=== PATIENT | female | born 1950 | race Two or more races ===

== ENCOUNTER 2023-12-15 07:36 | Outpatient (CLI) | payer OTHER ==
[~2023-12-15 07:36] MED LIST: COZAAR50 MG; SYNTHROID100 MCG
== END 2023-12-15 07:40 | disposition home or self-care (01) ==
LOC: RX STUDY 07:36
PROVIDERS: ATTEND Internal Medicine Gastroenterology
DX: K57.30 Diverticulosis of large intestine without perforation or abscess without bleeding (principal); K29.70 Gastritis, unspecified, without bleeding; R13.19 Other dysphagia; E78.1 Pure hyperglyceridemia

== ENCOUNTER 2024-09-16 09:32 | Outpatient (CLI) | payer OTHER | END 2024-09-16 09:49 | disposition home or self-care (01) | LOC: TOM 09:32 | PROVIDERS: ATTEND Internal Medicine Gastroenterology | DX: R19.4 Change in bowel habit (principal); R19.7 Diarrhea, unspecified; K57.30 Diverticulosis of large intestine without perforation or abscess without bleeding; K63.5 Polyp of colon; K57.32 Diverticulitis of large intestine without perforation or abscess without bleeding ==